=== PATIENT | female | born 1935 | race Caucasian/White ===

== ENCOUNTER 2016-04-02 09:54 | Emergency (ER) | payer OTHER ==
[~2016-04-02] VITALS: Ht 165.1 cm; Wt 76.0 kg
[2016-04-02] MEDS ORDERED: LEVO25TA9 PO (10:16)
[2016-04-02] MEDS ORDERED: LOSA25TA21 PO (10:20)
[2016-04-02 10:28] LABS: HEMATOCRIT 44.6 % (36-46); HEMOGLOBIN 14.7 g/dL (12.0-16.0); MEAN CORPUSCULAR HEMOGLOBIN 32.1 pg (26.0-34.0); MEAN CORPUSCULAR VOLUME 97 fL (80-100); PLATELET COUNT (AUTO) 125 K/uL (150-450); RED BLOOD CELL COUNT(AUTO) 4.58 MIL/uL (4.00-5.20); RED CELL DISTRIBUTION WIDTH 15.2 % (11.5-14.5); WHITE BLOOD COUNT (AUTO) 16.2 K/uL (4.5-11.0)
[2016-04-02 10:44] LABS: ALANINE AMINOTRANSFERASE 43 U/L (12-78); ALBUMIN 2.2 g/dL (3.4-5.0); ANION GAP 8 mmol/L (8-16); ASPARTATE AMINOTRANSFERASE 43 U/L (15-37); BILIRUBIN,TOTAL 0.7 mg/dL (0.1-1.0); CALCIUM, TOTAL 8.6 mg/dL (8.8-10.5); CARBON DIOXIDE 30 mmol/L (22-29); CHLORIDE 98 mmol/L (98-107); GLOMERULAR FILTR. RATE CALC 17 mL/min (>60); SODIUM SERUM 136 mmol/L (136-145); TOTAL PROTEIN, SERUM 6.5 g/dL (6.4-8.2); UREA NITROGEN, BLOOD 49 mg/dL (7-18)
[2016-04-02 10:47] LABS: POTASSIUM 2.5 mmol/L (3.5-5.1)
[2016-04-02 10:53] LABS: BAND NEUTROPHILS % (MANUAL) 39 % (1-5); LYMPHOCYTES % (MANUAL) 13 % (22-44); RBC MORPHOLOGY COMMENT NORMAL RBC MORPH; TOTAL CELLS COUNTED 100
[2016-04-02] MEDS ORDERED: POTASSIUM CHLORIDE 20 MEQ ER TABLET PO ONE (12:45)
[2016-04-02 15:44] VITALS: BP 95/55
== END 2016-04-02 17:13 | disposition home or self-care (01) ==
LOC: EMS 09:56
DX: F79 Unspecified intellectual disabilities (principal); N28.9 Disorder of kidney and ureter, unspecified; E03.9 Hypothyroidism, unspecified; E87.6 Hypokalemia; Z88.0 Allergy status to penicillin; Z88.8 Allergy status to other drugs, medicaments and biological substances
CPT/HCPCS: 36415; 80053; 85025; 93005; 99285; G0480